=== PATIENT | female | born 2000 | race Caucasian/White ===

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

== ENCOUNTER → 2018-01-02 12:21 | Outpatient (CLI) | payer MEDICAID ==
[2018-01-10 05:55] VITALS: BMI 39.3
== END | disposition home or self-care (01) ==
LOC: D.LDO 12:21
DX: O16.3 Unspecified maternal hypertension, third trimester (principal); Z3A.38 38 weeks gestation of pregnancy

== ENCOUNTER 2018-01-10 04:38 | Inpatient (IN) | payer BC ==
[~2018-01-10] VITALS: Ht 167.6 cm; Wt 110.2 kg
[2018-01-10] MEDS ORDERED: PROTONIX40 MG PO (05:54)
[2018-01-10] MEDS ORDERED: PRENATAL COMPLE1 TAB PO (05:54)
[2018-01-10 05:55] VITALS: BP 107/59; Ht 167.6 cm; Wt 110.2 kg
[2018-01-10 06:20] LABS: HEMATOCRIT 29.4 % (36.0-48.0); HEMOGLOBIN 9.3 g/dL (12-16); MCH 24.2 pg (26.0-34.0); MCHC 31.6 g/dL (31.0-37.0); MCV 76.6 fL (80.0-100.0); MEAN PLATELET VOLUME 9.6 fL (7.4-10.4); RBC 3.84 10x6/uL (4.00-5.40); RDW 14.9 % (11.5-14.5); WBC 12.1 10x3/uL (4.8-10.8)
[2018-01-10 07:18] LABS: APPEARANCE CLOUDY (CLEAR); BILIRUBIN NEGATIVE (NEGATIVE); COLOR YELLOW (YELLOW); GLUCOSE NEGATIVE (NEGATIVE); KETONE NEGATIVE (NEGATIVE); NITRITE NEGATIVE (NEGATIVE); PROTEIN NEGATIVE (NEGATIVE)
[2018-01-10 07:19] LABS: BACTERIA MODERATE /hpf (NONE SEEN); MUCUS >1+ /lpf (NONE SEEN); RED CELLS - URINE OCC /hpf (0-5)
[2018-01-11] VITALS (11 sets, daily range): BP systolic 118–144; BP diastolic 74–87
[2018-01-11 11:21] LABS: RAPID PLASMA REAGIN Reactive (Non Reactive); TREPONEMA PALLIDUM AB Positive (Negative)
[2018-01-11 15:46] LABS: BASOPHILS 0.1 % (0-2); EOSINOPHILS 0.1 % (0-7); HEMATOCRIT 31.5 % (36.0-48.0); HEMOGLOBIN 10.2 g/dL (12-16); IMMATURE GRANULOCYTES 0.4 % (0-5); LYMPHOCYTES 11.1 % (15-50); MCHC 32.4 g/dL (31.0-37.0); MCV 77.2 fL (80.0-100.0); MEAN PLATELET VOLUME 9.5 fL (7.4-10.4); MONOCYTES 6.5 % (2-11); NEUTROPHILS 81.8 % (40-80); RBC 4.08 10x6/uL (4.00-5.40); WBC 13.5 10x3/uL (4.8-10.8)
[2018-01-11 15:48] LABS: PLATELET COUNT 249 10x3/uL (130-400)
[2018-01-12 03:03] VITALS: BP 134/84
[2018-01-12 05:37] LABS: BASOPHILS 0.1 % (0-2); EOSINOPHILS 0.9 % (0-7); HEMATOCRIT 31.8 % (36.0-48.0); HEMOGLOBIN 10.1 g/dL (12-16); IMMATURE GRANULOCYTES 0.4 % (0-5); LYMPHOCYTES 16.4 % (15-50); MCH 24.6 pg (26.0-34.0); MCHC 31.8 g/dL (31.0-37.0); MCV 77.4 fL (80.0-100.0); MEAN PLATELET VOLUME 9.1 fL (7.4-10.4); MONOCYTES 6.6 % (2-11); NEUTROPHILS 75.6 % (40-80); PLATELET COUNT 250 10x3/uL (130-400); RBC 4.11 10x6/uL (4.00-5.40); RDW 15.3 % (11.5-14.5); WBC 11.6 10x3/uL (4.8-10.8)
[2018-01-12 14:25] VITALS: BP 135/85
[2018-01-12 20:06] VITALS: BP 144/81
[2018-01-12 23:49] VITALS: BP 143/83
[2018-01-13 03:24] VITALS: BP 149/83
[2018-01-13 09:00] VITALS: BP 134/80
== END 2018-01-13 11:15 | disposition home or self-care (01) | DRG 765 ==
LOC: D.LD 04:38
PROVIDERS: Obstetrics & Gynecology
PROC: 3E033VJ Introduction of Other Hormone into Peripheral Vein, Percutaneous Approach (ICD-10-PCS; 2018-01-11)
PROC: 10D00Z1 Extraction of Products of Conception, Low, Open Approach (ICD-10-PCS; principal; 2018-01-11 08:30)
DX: O99.02 Anemia complicating childbirth (principal); O98.12 Syphilis complicating childbirth; Z3A.39 39 weeks gestation of pregnancy; Z37.0 Single live birth; O61.0 Failed medical induction of labor; O35.8XX0 Maternal care for other (suspected) fetal abnormality and damage, not applicable or unspecified

== ENCOUNTER 2018-06-02 13:28 | Emergency (ER) | payer SELFPAY ==
[~2018-06-02] VITALS: Ht 167.6 cm; Wt 93.2 kg
[2018-06-02 13:29] VITALS: Ht 167.6 cm; Wt 93.2 kg
[2018-06-02 14:01] LABS: HCG URINE NEGATIVE (NEGATIVE)
[2018-06-02 15:14] VITALS: BP 136/76
== END 2018-06-02 15:15 | disposition home or self-care (01) ==
LOC: D.ER 13:28
PROVIDERS: Family Medicine
DX: S00.93XA Contusion of unspecified part of head, initial encounter (principal); Y04.2XXA Assault by strike against or bumped into by another person, initial encounter; Y93.89 Activity, other specified; Y92.019 Unspecified place in single-family (private) house as the place of occurrence of the external cause; S63.501A Unspecified sprain of right wrist, initial encounter; M25.531 Pain in right wrist

== ENCOUNTER 2019-11-01 11:09 | Outpatient (CLI) | payer SELFPAY ==
[2018-06-02 13:29] VITALS: BMI 33.1
== END 2019-11-01 11:30 | disposition home or self-care (01) ==
LOC: D.LDO 11:09
PROVIDERS: ATTEND Student in an Organized Health Care Education/Training Program
DX: O36.8130 Decreased fetal movements, third trimester, not applicable or unspecified (principal); Z3A.29 29 weeks gestation of pregnancy

== ENCOUNTER 2019-11-27 09:05 | Outpatient (CLI) | payer MEDICAID ==
[2018-06-02 13:29] VITALS: BMI 33.1
== END 2019-11-27 09:20 | disposition home or self-care (01) ==
LOC: D.LDO 09:05
PROVIDERS: ATTEND Obstetrics & Gynecology
DX: O35.9XX0 Maternal care for (suspected) fetal abnormality and damage, unspecified, not applicable or unspecified (principal)

== ENCOUNTER 2019-12-11 12:28 | Outpatient (CLI) | payer MEDICAID ==
[2018-06-02 13:29] VITALS: BMI 33.1
[2019-12-11 13:22] LABS: BASOPHILS 0.2 % (0-2); EOSINOPHILS 0.9 % (0-7); HEMATOCRIT 29.5 % (36.0-48.0); HEMOGLOBIN 9.2 g/dL (12-16); IMMATURE GRANULOCYTES 0.6 % (0-5); MCH 24.7 pg (26.0-34.0); MCHC 31.2 g/dL (31.0-37.0); MCV 79.3 fL (80.0-100.0); MEAN PLATELET VOLUME 9.2 fL (7.4-10.4); MONOCYTES 6.7 % (2-11); NEUTROPHILS 73.6 % (40-80); RBC 3.72 10x6/uL (4.00-5.40); RDW 14.4 % (11.5-14.5); WBC 8.8 10x3/uL (4.8-10.8)
[2019-12-11 13:24] LABS: PLATELET COUNT 327 10x3/uL (130-400)
[2019-12-11 13:27] LABS: BILIRUBIN NEGATIVE (NEGATIVE); CALC OSMOLALITY 268 mosm/kg (275-300); CALCIUM 8.4 mg/dL (8.5-10.1); CARBON DIOXIDE 21.8 mmol/L (21.0-32.0); CHLORIDE - SERUM 104 mmol/L (98-107); CREATININE - SERUM 0.3 mg/dL (0.6-1.3); GLUCOSE 83 mg/dL (74-106); GLUCOSE NEGATIVE (NEGATIVE); KETONE NEGATIVE (NEGATIVE); NITRITE NEGATIVE (NEGATIVE); POTASSIUM - SERUM 4.1 mmol/L (3.5-5.1); SODIUM 136 mmol/L (136-145); SPECIFIC GRAVITY 1.005 (1.005-1.020); UREA NITROGEN 6 mg/dL (7-18); UROBILINOGEN NORMAL (NORMAL); eGFR NON AFRICAN AMERICAN > 90 mL/min (90-120)
[2019-12-11 13:33] LABS: ALBUMIN 2.4 g/dL (3.4-5.0); ALKALINE PHOSPHATASE 82 U/L (30-120); ALT (SGPT) 11 U/L (10-68); BILIRUBIN - DIRECT 0.15 mg/dL (0.00-0.30); BILIRUBIN - INDIRECT 0.28 mg/dL (0.00-1.00); BILIRUBIN - TOTAL 0.43 mg/dL (0.2-1.3); PROTEIN - SERUM 6.2 g/dL (6.4-8.2); URIC ACID 4.4 mg/dL (2.6-7.2)
[2019-12-13 15:25] LABS: PROTEIN - URINE 14.1 mg/dL (0.0-11.9)
== END 2019-12-11 14:38 | disposition home or self-care (01) ==
LOC: D.LDO 12:28
PROVIDERS: ATTEND Obstetrics & Gynecology
DX: O26.893 Other specified pregnancy related conditions, third trimester (principal); Z3A.35 35 weeks gestation of pregnancy; R03.0 Elevated blood-pressure reading, without diagnosis of hypertension

== ENCOUNTER 2019-12-25 10:29 | Outpatient (CLI) | payer MEDICAID ==
[2018-06-02 13:29] VITALS: BMI 33.1
== END 2019-12-25 10:30 | disposition home or self-care (01) ==
LOC: D.LDO 10:29
PROVIDERS: ATTEND Obstetrics & Gynecology
DX: O26.893 Other specified pregnancy related conditions, third trimester (principal); Z3A.37 37 weeks gestation of pregnancy; R03.0 Elevated blood-pressure reading, without diagnosis of hypertension

== ENCOUNTER 2020-01-01 08:45 | Outpatient (CLI) | payer MEDICAID ==
[2018-06-02 13:29] VITALS: BMI 33.1
== END 2020-01-01 09:35 | disposition home or self-care (01) ==
LOC: D.LDO 08:45
PROVIDERS: ATTEND Obstetrics & Gynecology
DX: O26.893 Other specified pregnancy related conditions, third trimester (principal); Z3A.38 38 weeks gestation of pregnancy

== ENCOUNTER 2020-01-03 05:50 | Inpatient (IN) | payer MEDICAID ==
[~2020-01-03] VITALS: Ht 167.6 cm; Wt 106.6 kg
[2020-01-03] VITALS (10 sets, daily range): BP systolic 108–147; BP diastolic 59–84; Ht 167.6 cm; Wt 106.6 kg
[2020-01-03] MEDS ORDERED: PRENAVITE1 TAB PO (05:53)
[2020-01-03 06:44] LABS: HEMATOCRIT 29.3 % (36.0-48.0); HEMOGLOBIN 8.9 g/dL (12-16); MCH 23.6 pg (26.0-34.0); MCHC 30.4 g/dL (31.0-37.0); MCV 77.7 fL (80.0-100.0); MEAN PLATELET VOLUME 9.7 fL (7.4-10.4); RBC 3.77 10x6/uL (4.00-5.40)
[2020-01-03 06:50] LABS: UDS - AMPHET NEGATIVE QUAL (NEGATIVE); UDS - BARB NEGATIVE QUAL (NEGATIVE); UDS - BENZO NEGATIVE QUAL (NEGATIVE); UDS - COCAINE NEGATIVE QUAL (NEGATIVE); UDS - OPIATE NEGATIVE QUAL (NEGATIVE); UDS - PCP NEGATIVE QUAL (NEGATIVE); UDS - THC NEGATIVE QUAL (NEGATIVE)
--- NOTE | 2020-01-03 09:48 | NUR ---
0905 FUNDAL HEIGHT 1 FINGERBREATH ABOVE UMBILICUS, UTERUS MIDLINE AND FIRM. 0930 2ND IV STARTED RIGHT ANTECUBITAL WITH 20 GUAGE X 6 TRIES. 5 TRIES BY Ciara KIM CRNA AND 1 BY Dayami PEGUERO RN
--- NOTE | 2020-01-03 09:52 | NUR ---
0952 MEETS ANESTHESIA DISCHARGE CRITERIA
--- NOTE | 2020-01-03 10:04 | NUR ---
RECEIVED PT FROM VIA BED TO ROOM 1274. BED LOCKED AND PLACED IN LOW POSITION. VSS. PT AWAKE. AAO X 3. HRRR WITHOUT AUDIBLE MURMUR. BBS CLEAR. BS NOT ACTIVE AT THIS TIME. ABDOMEN SOFT/NON-DISTENDED. FUNDUS FIRM AT U/1. RUBRA LOCHIA MOD AMT. NO CLOTS EXPRESSED ON FUNDAL MASSAGE. ABDOMINAL DRESSING DRY WITHOUT DRAINAGE NOTED. ICE PACK TO INCISION. PERICARE DONE. CHUX AND PERIPAD CHANGED. NEG HOMANS' SIGN. PPP. MILD NON-PITTING EDEMA NOTED TO BLE. ZAMBRANO TO GRAVITY DRAINING CAROLYNE COLORED URINE. SCDS ON BLE. PUMP ON. PT STATES PAIN OF "3" ON 0-10 PAIN SCALE. SR UP X 2. CALL LIGHT IN REACH.
--- NOTE | 2020-01-03 10:18 | NUR ---
RESTING WITH EYES CLOSED, AROUSES TO DOOR OPENING. VSS. FUNDUS FIRM, MIDLINE AND U2 WITH SMALL AMT RUBRA LOCHIA, NO CLOTS NOTED. DENIES NEEDS AT THIS TIME. CAR PROVIDED. SCD'S ON. ENCOURAGED TO REST. BED IN LOW POSITION WITH SRUP X2. CALL LIGHT AND PHONE WITHIN REACH. WILL CONTINUE TO MONITOR AND ASSIST PRN.
--- NOTE | 2020-01-03 11:21 | NUR ---
VSS. PAIN 3/10 WITH MANAGER UNDERWRITING USE. FUNDUS FIRM, MIDLINE AND U2 WITH SMALL AMT RUBRA LOCHIA, NO CLOTS NOTED PERICARE DONE. PAD CHANGED. INSTRUCTED ON INCENTIVE SPIROMETER USE WITH RETURN DEMONSTRATIONS. ICE CHIPS PROVIDED. ICE PACK PLACED TO ABD. DRSG TO LOWER TRANSVERSE ABD INCISION REMAINS CLEAN DRY AND INTACT WITH DRAINAGE. SCD'S ON BLE. BED IN LOW POSITION WITH SRUP X2. CALL LIGHT AND PHONE WITHIN REACH. WILL CONTINUE TO MONITOR.
--- NOTE | 2020-01-03 12:30 | NUR ---
PT SITTING UP IN BED. CONSUMING CLEAR LIQUID DIET. TOLERATING WELL. DENIES PAIN OR NEEDS.
[2020-01-03 13:02] LABS: BASOPHILS 0.1 % (0-2); EOSINOPHILS 0.1 % (0-7); HEMOGLOBIN 10.4 g/dL (12-16); IMMATURE GRANULOCYTES 0.4 % (0-5); LYMPHOCYTES 9.9 % (15-50); MCH 24.2 pg (26.0-34.0); MCHC 30.6 g/dL (31.0-37.0); MCV 79.3 fL (80.0-100.0); MEAN PLATELET VOLUME 9.1 fL (7.4-10.4); MONOCYTES 3.9 % (2-11); NEUTROPHILS 85.6 % (40-80); RBC 4.29 10x6/uL (4.00-5.40); RDW 15.3 % (11.5-14.5)
[2020-01-03 13:03] LABS: PLATELET COUNT 257 10x3/uL (130-400); WBC 15.7 10x3/uL (4.8-10.8)
--- NOTE | 2020-01-03 14:00 | NUR ---
FUNDUS FIRM AT U/1. RUBRA LOCHIA SMALL AMT. PERIPAD CHANGED. PT DENIES PAIN OR NEEDS. SR UP X 2. CALL LIGHT IN REACH.
--- NOTE | 2020-01-03 15:20 | NUR ---
PT SITTING UP IN BED. HOLDS WITH MUCH WARMTH SHOWN. VSS. DENIES NEEDS OR C/O.
--- NOTE | 2020-01-03 17:02 | NUR ---
PT SITTING UP IN BED. FUNDUS FIRM AT U/1. RUBRA LOCHIA SMALL AMT. NO CLOTS EXPRESSED. PERICARE DONE. CHUX AND PERIPAD CHANGED. PT MOVES WELL IN BED. C/O INCISIONAL PAIN. NEW DILAUDID SUPERVISOR GRAPHITE SYRINGE UP AT THIS TIME.
--- NOTE | 2020-01-03 17:42 | MORECARE ---
CASE MANAGEMENT DISCHARGE SUMMARY PATIENT: LARRY GARCIA UNIT: [id number] ADM DATE: 01/03/20 AGE: 19 : 98 SEX: F ROOM/BED: D.1274 AUTHOR: JACK RAY PHYSICIAN: REFERRING PHYSICIAN: JOHNATHAN DE LA ROSA MD DATE OF SERVICE: 01/03/20 Discharge Plan Patient Name: LARRY GARCIA Facility: [facility]:[place] : 2000 Planned Disposition: Home Anticipated Discharge Date: 01/07/20 Discharge Date: Expected LOS: 4 Initial Reviewer: [email or web address] Initial Review Date: 01/03/2020 Generated: 01/03/20 6:42 pm Patient Name: LARRY GARCIA Page [id number] at 1742 All edits/amendments must be made on the electronic document DICTATION DATE: 01/03/201741 RAKER BUFFING WHEEL: SHERMAN 01/03/201741 RPT#: [id number] DC DATE: STATUS: ADM IN [facility] [address] [place] [address] END OF REPORT
--- NOTE | 2020-01-03 18:10 | NUR ---
PT C/O INCISIONAL/CRAMPING OF "3" ON 0-10 PAIN SCALE. TORADOL 30 MG GIVEN SIVP OVER 2 MINUTES. PT INSTRUCTED ON MED. VERBALIZES UNDERSTANDING.
--- NOTE | 2020-01-03 19:00 | NUR ---
REPORT GIVEN TO Dayami HACKETT RN
--- NOTE | 2020-01-04 00:33 | NUR ---
RN rounding, pt is sleeping at this time. FOB at bedside sleeping on couch. No needs at this time.
[2020-01-04 02:22] VITALS: BP 122/78
--- NOTE | 2020-01-04 02:23 | NUR ---
RN TO PT BEDSIDE FOR ROUNDING, VSS. PT STATES PAIN IS 0/10 AT THIS TIME. FUNDUS IS FIRM, MIDLINE, 2 BELOW, SCANT RUBRA LOCHIA NOTED TO PERIPAD, NO CLOTS NOTED. PT STATES ALL HER NEEDS ARE CURRENTLY MET, AND THAT SHE IS GOING TO SLEEP A LITTLE LONGER. BED IN LOWEST POSITION, SIDE RAILS UPX2, CALL LIGHT IN REACH.
--- NOTE | 2020-01-04 04:09 | NUR ---
PT ASLEEP AT THIS TIME. DID NOT AWAKEN. RESPS EVEN AND UNLABORED. Ranjith JACKSON RN
[2020-01-04 05:29] VITALS: BP 127/75
--- NOTE | 2020-01-04 05:37 | NUR ---
PT MEDICATED FOR PAIN LEVEL OF 02/27. WILL CONTINUE TO MONITOR. Ranjith JACKSON RN
[2020-01-04 05:41] LABS: BASOPHILS 0.2 % (0-2); EOSINOPHILS 1.1 % (0-7); HEMATOCRIT 34.4 % (36.0-48.0); HEMOGLOBIN 10.8 g/dL (12-16); IMMATURE GRANULOCYTES 0.6 % (0-5); LYMPHOCYTES 14.8 % (15-50); MCH 24.7 pg (26.0-34.0); MCHC 31.4 g/dL (31.0-37.0); MCV 78.7 fL (80.0-100.0); MEAN PLATELET VOLUME 9.3 fL (7.4-10.4); MONOCYTES 7.2 % (2-11); NEUTROPHILS 76.1 % (40-80); PLATELET COUNT 260 10x3/uL (130-400); RBC 4.37 10x6/uL (4.00-5.40); RDW 15.2 % (11.5-14.5)
[2020-01-04 05:46] LABS: WBC 10.5 10x3/uL (4.8-10.8)
[2020-01-04 06:09] VITALS: BP 122/71
[2020-01-04 07:39] VITALS: BP 128/72
--- NOTE | 2020-01-04 07:39 | NUR ---
AM ASSESSMENT COMPLETED. PT SITTING UPRIGHT IN BED TOLERATING REGULAR DIET WITHOUT DIFFICULTY. VSS, AFEBRILE, SKIN WARM AND DRY, COLOR PINK, RESP EVEN AND UNLABORED, HEART RRR, ABD SOFT AND APPROPRIATELY TENDER TO LIGHT PALPATION, FUNDUS FIRM AT U/2 AND MIDLINE, LOCHIA RUBRA MODERATE AMOUNT, SELF-PERFORMS PERICARE, VOIDING WITHOUT DIFFICULTY, DENIES FLATUS, WEBB FREELY, NEGATIVE HERMINIO'S SIGN B LE, PEDAL PULSES STRONG/=/+2 B. REVIEWED PLAN OF CARE TO INCLUDE AMBULATION IN HALLS,SHOWERING AFTER DRESSING REMOVED PER MD ON ROUNDS, INCENTIVE SPIROMETRY, TCDB, ICE PACK OVERLAY IF DESIRED, PAIN MANAGEMENT STRATEGIES, AND DISCHARGE PLANNING GOALS. PT STATES UNDERSTANDING OF ALL INFORMATION REVIEWED. CALL LIGHT IN EASY REACH, BED IN LOW POSITION, BED BRAKES LOCKED, SIDE RAILS UP X2, SIGNIFICANT OTHER AT BS PROVIDING SUPPORT PRN. WILL MONITOR FOR CHANGE IN CONDITION.
--- NOTE | 2020-01-04 08:28 | NUR ---
AMBULATORY IN HALLS WITH SIGNIFICANT OTHER, PUSHING IN ROLLING CRIB, NAD NOTED. CONTINUE TO MONITOR.
--- NOTE | 2020-01-04 09:10 | NUR ---
rounds completed, nad noted. cup of ice water provided upon request. no other needs or concerns voiced at this time, continue to monitor.
--- NOTE | 2020-01-04 10:04 | NUR ---
pt c/o incisional pain rated 5/10 on numeric pain scale at rest that increases with activity. s/p shower, abdominal dressing removed, low transverse incision cdi with stanislav with no redness, warmth, or drainage noted. pt given prn med for c/o pain as requested. no other needs voiced at this time, lights dimmed, sleeping also nad noted in rolling crib adjacent to bed. call light in easy reach, continue to monitor.
--- NOTE | 2020-01-04 11:01 | NUR ---
ROUNDS COMPLETED, PAIN REASSESSMENT 2-10/28 ON NUMERIC PAIN SCALE, PT WITHOUT DIFFICULTY, REVIEWED RECOMMENDATIONS WITH PT, PT STATES UNDERSTANDING, WILL CONTINUE TO [id number]. CALL LIGHT IN EASY REACH, BED IN LOW POSITION, BED BRAKES LOCKED.
[2020-01-04 11:08] LABS: RAPID PLASMA REAGIN Reactive (Non Reactive); TREPONEMA PALLIDUM AB Reactive (Non Reactive)
--- NOTE | 2020-01-04 12:39 | NUR ---
ROUNDS COMPLETED, TOLERATING PO DIET, VOIDING WELL, PASSING FLATUS. DENIES NEEDS OR CONCERNS. WILL MONITOR FOR CHANGE IN CONDITION.
--- NOTE | 2020-01-04 13:20 | NUR ---
pt denies needs on rounds, continue to monitor.
--- NOTE | 2020-01-04 14:40 | NUR ---
rhogham 1 unit dose given to pt right dorsogluteal medius muscle with negative bleed screen noted. pt tolerates procedure well. denies other needs or concerns at present. nad noted. continue to monitor.
--- NOTE | 2020-01-04 15:10 | NUR ---
rounds completed, linens changed, pt oob ambulatory in room now sitting on couch. rates pain 2 or 3 out of 10 on numeric pain scale. denies further needs at this time. significant other present providing support to pt prn.
[2020-01-04 16:39] VITALS: BP 125/81
--- NOTE | 2020-01-04 16:39 | NUR ---
ROUNDS COMPLETED, PT STATES DOES NOT LIKE DINNER TRAY ITEMS, REQUESTS TURKEY SANDWICH, SAME PROVIDED. NO OTHER NEEDS VOICED, VSS, AFEBRILE, FUNDUS FIRM AT U/3 AND MIDLINE, DENIES PAIN AT PRESENT. NAD NOTED. WILL MONITOR.
--- NOTE | 2020-01-04 17:28 | NUR ---
ROUNDS COMPLETED, IN ARMS-BOTTLE FEEDING INFANT, STATES SOME DIFFICULTY WITH THIS FEEDING. REASSURANCE PROVIDED THAT CAN CONTINUE TO OFFER BREAST, TAKES TIME TO DEVELOP FEEDING ROUTINE AND COMFORT LEVEL. PT STATES UNDERSTANDING OF INSTRUCTIONS GIVEN. CUP OF ICE PROVIDED UON REQUEST, NO OTHER NEEDS VOICED. CONTINUE TO MONITOR. CALL LIGHT IN EASY REACH OF PT.
--- NOTE | 2020-01-04 18:08 | NUR ---
PT C/O INCISIONAL PAIN, REQUESTS PRN MED, STATES INTENT TO AMBULATE IN HALLS ONCE REACHES PEAK EFFECTIVENESS. NO SOB, DIZZINESS, WEN. DENIES OTHER NEEDS AT PRESENT, CONTINUE TO MONITOR.
--- NOTE | 2020-01-04 19:25 | NUR ---
PT AMBULATING IN HALLWAY WITH SIGNIFICANT OTHER.
--- NOTE | 2020-01-04 19:41 | NUR ---
RN TO PT BEDSIDE FOR ROUNDING. PT COMPLAIN OF PAIN 1-2/10 TO ABDOMINAL INCISION. FUNDUS IS FIRM, MIDLINE, 3 BELOW, NO BLEEDING NOTED AT THIS TIME. INCISION IS CLEAN, DRY, AND INTACT. PT STATES HER REQUEST IS FOR SOME ICE WATER. RN TO BRING ICE WATER FOR PT. BED IN LOWEST POSITION, SIDE RAILS UPX2, CALL LIGHT IN REACH, SIGNIFICANT OTHER AT PT'S SIDE, NON-SKID SOCKS ON.
[2020-01-04 19:43] VITALS: BP 128/70
--- NOTE | 2020-01-04 19:45 | NUR ---
RN TO PT BEDSIDE WITH ICE AND ICE WATER PER PT REQUEST. PT SITING ON COUCH WITH SIGNIFICANT OTHER AT THIS TIME. INFANT IN CRIB AT BEDSIDE.
--- NOTE | 2020-01-04 23:36 | NUR ---
RN TO PT BEDSIDE FOR ROUNDING. PT REQUEST PAIN MEDICATION AT THIS TIME. RN TO REVIEW MAR AND ADMINISTER PAIN MED.
--- NOTE | 2020-01-05 02:25 | NUR ---
RN TO PT BEDSIDE FOR ROUNDING, PT SLEEPING AT THIS TIME.
[2020-01-05 05:11] VITALS: BP 145/80
--- NOTE | 2020-01-05 07:05 | NUR ---
TO ROOM FOR BEDSIDE SHIFT REPORT, PT IS SLEEPING, SIG OTHER ON SOFA, PT NOT DISTURBED AT THIS TIME. SR UP X2, CALL LIGHT AND PHONE WITHIN REACH.
[2020-01-05 08:00] VITALS: BP 134/76
--- NOTE | 2020-01-05 08:00 | NUR ---
TO ROOM, PT AWAKENED FOR AM ASSESSMENT. PT DENIES HEAVY BLEEDING OR PASSING CLOTS. ABDOMEN PALPATES SOFT, C/S INCISION NOTED TO BE C/D/I WITH KISHOR PRESENT. PT HAS CLEAN PERIPAD OVER KISHOR FOR COMFORT. SEE AM ASSESSMENT. REGULAR BREAKFAST TRAY ON BEDSIDE TABLE. INFANT IN CRIB, ASLEEP, NO DISTRESS NOTED. SIG OTHER ON SOFA, ON CELL PHONE. PT REQUESTS ICE, LARGE MUG OF ICE SERVED. PT DENIES ALL OTHER NEEDS. DISCHARGE PLANNING BEGAN. PT STATES SHE HAS AN APPT ON MONDAY TO SEE DR. DE LA ROSA FOR STAPLE REMOVAL. PT DENIES ALL OTHERRRR NEEDS. SR UP X2, CL/PHONE WITHIN REACH.
[2020-01-05] MEDS ORDERED: PERCOCET 7.5/321 TAB PO (09:26)
[2020-01-05] MEDS ORDERED: IBUPROFEN800 MG PO (09:26)
--- NOTE | 2020-01-05 11:40 | NUR ---
DISCHARGE INSTRUCTIONS EXPLAINED TO PT, COPIES PROVIDED, EMERGENCY INFO SHEETS, HOME MED REC, AND POST / C/S INFORMATION SHEETS PROVIDED TO PT.
--- NOTE | 2020-01-05 16:08 | NUR ---
INFANT NOT BEING DC'D HOME TODAY. DR SWENSON NOTIFIED. TO ROOM PT IN.
--- NOTE | 2020-01-06 08:43 | MORECARE ---
CASE MANAGEMENT DISCHARGE SUMMARY PATIENT: LARRY GARCIA UNIT: [id number] ADM DATE: 01/03/20 AGE: 19 : 98 SEX: F ROOM/BED: D.1274 AUTHOR: JACK RAY PHYSICIAN: REFERRING PHYSICIAN: JOHNATHAN DE LA ROSA MD DATE OF SERVICE: 01/06/20 Discharge Plan Patient Name: LARRY GARCIA [facility] [facility] 2000 Planned Disposition: Home Anticipated Discharge Date: 01/07/20 Discharge Date: 01/05/2020 Expected LOS: 4 Initial Reviewer: [email or web address] Initial Review Date: 01/03/2020 Generated: 01/06/20 9:43 am Last DP export: 01/03/20 4:42 p Patient Name: LARRY GARCIA Page [id number] at 0843 All edits/amendments must be made on the electronic document DICTATION DATE: 01/06/20 0843 PRECISION FILER HAND: SHERMAN 01/06/20 0843 RPT#: [id number] DC DATE:01/05/20 STATUS: DIS IN [facility] [address] [place] [address] END OF REPORT
--- NOTE | 2020-01-06 09:21 | MORECARE ---
CASE MANAGEMENT DISCHARGE SUMMARY PATIENT: LARRY GARCIA UNIT: [id number] ADM DATE: 01/03/20 AGE: 19 : [birth year] SEX: F ROOM/BED: D.1274 AUTHOR: JACK RAY PHYSICIAN: REFERRING PHYSICIAN: JOHNATHAN DE LA ROSA MD DATE OF SERVICE: 01/06/20 Discharge Plan Patient Name: LARRY GARCIA [facility] [facility] 2000 Planned Disposition: Home Anticipated Discharge Date: 01/07/20 Discharge Date: 01/05/2020 Expected LOS: 4 Initial Reviewer: [email or web address] Initial Review Date: 01/03/2020 Generated: 01/06/20 10:21 am Last DP export: 01/06/20 7:43 a Patient Name: LARRY GARCIA Page [id number] at 0921 All edits/amendments must be made on the electronic document DICTATION DATE: 01/06/20920 GRAPPLE OPERATOR: SHERMAN 01/06/20920 RPT#: [id number] DC DATE:01/05/20 STATUS: DIS IN [facility] [address] [place] [address] END OF REPORT
== END 2020-01-05 23:27 | disposition home or self-care (01) | DRG 788 ==
LOC: D.LD 05:50 → D.SDCHOLD 07:30 → D.LD 01-05 23:27
PROVIDERS: ADMIT Obstetrics & Gynecology; ATTEND Obstetrics & Gynecology
PROC: 10D00Z1 Extraction of Products of Conception, Low, Open Approach (ICD-10-PCS; principal; 2020-01-03 07:30)
DX: O34.219 Maternal care for unspecified type scar from previous cesarean delivery (principal); Z3A.39 39 weeks gestation of pregnancy; Z37.0 Single live birth; O99.02 Anemia complicating childbirth; D64.9 Anemia, unspecified